=== PATIENT | female | born 1970 | race Caucasian/White ===

== ENCOUNTER 2016-07-27 06:52 | Emergency (ER) | payer OTHER ==
[~2016-07-27 06:52] MED LIST: IBUP200T43 PO; LINA290C PO; OMEP20TA63 PO; SERT100T PO
--- NOTE | 2016-07-27 07:56 | PHYS DOC ---
General Chief Complaint: Headache Stated Complaint: Ear pain Time Seen by MD: 07:01 Source: patient Exam Limitations: no limitations Problems: History of Present Illness Initial Comments Patient is a 46-year-old female who comes to the ED complaining of headache and ear fullness. Patient states that for the past several days she's had a headache. She has history of migraine headaches however states this headache is different. She denies aura or scotoma has had some nausea, headache is global starting in the frontal region and radiating posteriorly. Headache changes in that the patient can feel pressure move up in her forehead and cheeks with forward bending at the waist. She's had green nasal discharge and postnasal drip with some coughing especially at night. She's had sneezing and watery eyes and lots of tearing and clear nasal discharge as well. One major complaint is bilateral ear fullness and muffled hearing. She has minor discomfort with this and this had no trauma or discharge. She notices going along with a scratchy throat and coughing. No fever chills sweats or myalgias no chest pain or trouble breathing or dysphasia or focal neurologic deficit. She denies recent head trauma states she has had a recent CT evaluation for her chronic migraine headaches. She has not tried any of her [id number] headache or allergy medications at home. Headache is not described as "worst of life" she's not been losing any weight. She has been struggling with blood pressure control, they think her home device is broken as both of their values were elevated this morning. Timing/Duration: gradual, last week Severity: moderate Location: ear (R), ear (L), nose, facial Prearrival Treatment: over the counter meds Modifying Factors: worse with coughing, improves with rest Associated Symptoms: cough, malaise, nasal congestion/drainage, sinus infection , sore throat Allergies: Coded Allergies: Erythromycin Base (Verified Adverse Reaction, Intermediate, n/v, 12/09/13) Penicillins (Verified Adverse Reaction, Intermediate, n/v, 12/09/13) Past Medical History Medical History: allergies, hypertension Surgical History: no surgical history Family History Significant Family History: no pertinent family hx Social History Smoker: non-smoker Alcohol: none Drugs: none Constitutional: denies chills, denies diaphoresis, denies fever, denies malaise Eyes: denies blindness, blurred vision, drainage, denies decreased acuity, denies foreign body sensation Ears: see HPI, denies dizziness, pain, denies tinnitus, denies bloody discharge , denies clear discharge Mouth: denies loose teeth, denies pain, denies swelling Throat: pain, denies swelling, denies neck stiffness, denies hoarse, denies aphonia Respiratory: cough, denies shortness of breath, denies wheezing Cardiovascular: denies chest pain, denies palpitations, denies syncope Gastrointestinal: denies abdominal pain, denies nausea, denies vomiting Neurological: headache, denies numbness, denies paresthesia Physical Exam General Appearance: WD/WN, no apparent distress Eyes: bilateral eye normal inspection, bilateral eye PERRL, bilateral eye EOMI Ears: bilateral ear auricle normal, bilateral ear canal normal, bilateral ear other (serous fluid b/l) Nose: normal inspection, sinus tenderness Mouth/Throat: normal mouth inspection (clear/yellow disch) Neck: full range of motion, supple Cardiovascular/Respiratory: normal peripheral pulses, normal breath sounds, no respiratory distress 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 Remain in cool temp dimly lit environment. Continue current meds. OTC tylenol and benadryl as needed. Rx: prednisone, flonase, bactrim ds Follow up on Post in 5-7 days if not better. Return to ED with new or changing symptoms. GUZMAN MAYES DO Jul 27, 2016 07:56
[2016-07-27 08:15] VITALS: BP 135/78
== END 2016-07-27 08:15 | disposition home or self-care (01) ==
LOC: ER 06:52
DX: J32.9 Chronic sinusitis, unspecified (principal); H65.93 Unspecified nonsuppurative otitis media, bilateral; G43.909 Migraine, unspecified, not intractable, without status migrainosus; I10 Essential (primary) hypertension; Z88.0 Allergy status to penicillin; Z88.1 Allergy status to other antibiotic agents
CPT/HCPCS: 99283